=== PATIENT | female | born 1995 | race Caucasian/White ===

== ENCOUNTER 2022-02-01 08:23 | Emergency (ER) | payer MEDICAID ==
[~2022-02-01] VITALS: Ht 172.7 cm; Wt 77.1 kg
[~2022-02-01 08:23] MED LIST: CALC-1026 PO
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
--- NOTE | 2022-02-01 08:55 | NUR ---
AT BED SIDE
--- NOTE | 2022-02-01 09:25 | NUR ---
PATIENT TAKEN TO CT
[2022-02-01] MEDS ORDERED: ACETAMINOPHEN ES 500 MG TABLET ONE (09:28)
[2022-02-01] MEDS ORDERED: ACETAMINOPHEN ES 500 MG TABLET PO ONE (09:30)
--- NOTE | 2022-02-01 10:00 | NUR ---
REVIEWED BY DR COLLAZO PATIENT FOR DC
[2022-02-01 10:11] VITALS: BP 125/80
== END 2022-02-01 10:12 | disposition home or self-care (01) ==
LOC: ER 08:29
DX: M54.2 Cervicalgia (principal); V49.9XXA Car occupant (driver) (passenger) injured in unspecified traffic accident, initial encounter; Y93.89 Activity, other specified; Y92.89 Other specified places as the place of occurrence of the external cause; Y99.8 Other external cause status
CPT/HCPCS: 72040-TC